=== PATIENT | female | born 1970 | race Caucasian/White ===

== ENCOUNTER 2016-11-09 20:18 | Emergency (ER) | payer MEDICARE, MEDICAID ==
[~2016-11-09] VITALS: Ht 182.9 cm; Wt 86.7 kg
[~2016-11-09 20:18] MED LIST: ALPR.5 PO; CATH8MIS; GABA600T PO; HYDR-3535 PO; TRAZ100T4 PO; ZOLO100T PO
[2016-11-09 20:26] VITALS: BP 141/96; PULSE 75; RESP 16; TEMP 98.6; O2SAT 96
[2016-11-09 21:34] VITALS: BP 153/82; PULSE 69; RESP 18; TEMP 98.6; O2SAT 94
[2016-11-09] MEDS ORDERED: MORPHINE SULFATE 4 MG/ML INJ IV PUSH ONE (21:45)
[2016-11-09] MEDS ORDERED: SODIUM CHLORIDE 0.9% FLUSH 5 ML FLUSH IVF PRN (21:45)
[2016-11-09] MEDS ORDERED: ONDANSETRON HCL 4 MG/2 ML VIAL IVP ONE (21:45)
--- NOTE | 2016-11-09 22:02 | PD ---
HPI . Black tarry stools Chief Complaint: GI Complaint Time Seen by Provider: 21:44 Travel History International Travel<30 days: No Contact w/Intl Traveler<30days: No Traveled to known affect area: No History of Present Illness HPI Patient presents complaining with black tarry stools. She reports that this is been going on for a couple days. She states that it is acutely worse today. She reports approximately 4 episodes of dark tarry stools today. It is associated with diffuse abdominal pain. It is associated with nausea but no vomiting or diarrhea. She reports no change in appetite. She denies fever. Patient reports a spinal cord injury. She has a history of a tethered cord and underwent surgery several years ago. Since then, she has had no control of her bowels or bladder. She states that she self catheters. She states that she defecates by stimulation or by just letting it "run right now." [id number]: Diffuse abdomen SEVERITY: Severe DURATION: 3 days TIMING: Acutely worse today CONTEXT: Saddle anesthesia ASSOCIATED SYMPTOMS: Nausea PFSH Past Medical History Hx Anticoagulant Therapy: No Blood Disorders: No Anxiety: Yes Depression: Yes Cancer: No Cardiovascular Problems: No Chemotherapy: No Cerebrovascular Accident: No Diabetes: No Diminished Hearing: No Endocrine: No Gastrointestinal Disorders: Yes (Self Cath to urinate and digital stimulate for BM) GERD: Yes Genitourinary: No Hepatitis: No Hiatal Hernia: No Immune Disorder: No Musculoskeletal: Yes (chronic pain) Neurologic: No Psychiatric: No Reproductive: No Respiratory: No Immunizations Current: Yes Ulcer: No Tetanus Vaccination: Unknown ?: Not LMP: 312-17 : 4 Para: 3 Miscarriage: 1 Tubal Ligation: Yes Past Surgical History Abdominal Surgery: No AICD: No Appendectomy: No Arteriovenous Shunt: No Cardiac Surgery: No Section: Yes (x 3) Cholecystectomy: No Endocrine Surgery: No Eye Surgery: No Genitourinary Surgery: No Gynecologic Surgery: Yes (ENDOMETRIOSIS) Hysterectomy: No Insulin Pump: No Joint Replacement: No Neurologic Surgery: No Oral Surgery: No Pacemaker: No Thoracic Surgery: No Other Surgery: Yes (tethercord removal ) Social History Alcohol Use: No Tobacco Use: Yes (1 PPD) Allergies-Medications (Allergen,Severity, Reaction): Coded Allergies: Flagyl (Verified Allergy, Severe, Hives, 11/09/16) Clindamycin (Verified Adverse Reaction, Severe, C-diff, 11/09/16) Reported Meds & Prescriptions Reported Meds & Active Scripts Active Bentyl (Dicyclomine HCl) 20 Mg Tab 20 Mg PO QID PRN Gentlecath Urinary Catheter (N/A) 1 Mis Mis 1 Ea .ROUTE DIRECTED Reported Trazodone (Trazodone HCl) 100 Mg Tab 100 Mg PO HS Lortab (Hydrocodone-Acetaminophen) 10-325 Mg Tab 1 Tab PO TID PRN Zoloft (Sertraline HCl) 100 Mg Tab 150 Mg PO DAILY Gabapentin 600 Mg Tab 600 Mg PO QID Xanax (Alprazolam) 0.5 Mg Tab 0.5 Mg PO Q8H PRN Review of Systems Except as stated in HPI: all other systems reviewed are Neg General / Constitutional: No: Fever, Chills Gastrointestinal: Positive: Nausea, Abdominal Pain, Hematochezia, Changes in Bowel Habits, No: Vomiting, Diarrhea, Indigestion, Loss of Appetite Genitourinary: Positive: Other (she self catheterizes. She reports no change.) Physical Exam Narrative GENERAL: Awake and alert and in no acute distress. SKIN: Warm and dry. HEAD: Atraumatic. Normocephalic. EYES: Pupils equal and round. ENT: No nasal bleeding or discharge. Mucous membranes pink and moist. NECK: Trachea midline. Neck is supple. CARDIOVASCULAR: Regular rate and rhythm. Heart sounds are normal. RESPIRATORY: No accessory muscle use. Lungs are clear with full air movement throughout. GASTROINTESTINAL: Abdomen soft. Diffusely tender. Nondistended. Normal bowel sounds. RECTAL: Poor tone. Brown stool. MUSCULOSKELETAL: No obvious deformities. No edema. NEUROLOGICAL: Awake and alert. No obvious cranial nerve deficits. Motor grossly within normal limits. Normal speech. PSYCHIATRIC: Appropriate mood and affect; insight and judgment normal. Data Data Last Documented VS Vital Signs Date Time Temp Pulse Resp B/P Pulse Ox O2 Delivery O2 Flow Rate FiO2 11/09/16 23:22 78 18 97 11/09/16 22:54 148/80 Room Air 11/09/16 21:34 98.6 Orders Complete Blood Count With Diff (11/09/16 21:44) Comprehensive Metabolic Panel (11/09/16 21:44) Lipase (11/09/16 21:44) Urinalysis - C+S If Indicated (11/09/16 21:44) Ct Abd/Pel W Iv Contrast(Rout) (11/09/16 21:44) Iv Access Insert/Monitor (11/09/16 21:44) Ecg Monitoring (11/09/16 21:44) Oximetry (11/09/16 21:44) Morphine Inj (Morphine Inj) (11/09/16 21:45) Ondansetron Inj (Zofran Inj) (11/09/16 21:45) Sodium Chloride 0.9% Flush (Ns Flush) (11/09/16 21:45) Labs Laboratory Tests Test 11/09/16 11/09/16 21:40 21:54 White Blood Count 9.9 TH/MM3 Red Blood Count 5.19 MIL/MM3 Hemoglobin 10.1 GM/DL Hematocrit 33.1 % Mean Corpuscular Volume 63.8 FL Mean Corpuscular Hemoglobin 19.4 PG Mean Corpuscular Hemoglobin 30.5 % Concent Red Cell Distribution Width 19.3 % Platelet Count 287 TH/MM3 Mean Platelet Volume 8.3 FL Neutrophils (%) (Auto) 60.9 % Lymphocytes (%) (Auto) 28.8 % Monocytes (%) (Auto) 8.8 % Eosinophils (%) (Auto) 1.0 % Basophils (%) (Auto) 0.5 % Neutrophils # (Auto) 6.0 TH/MM3 Lymphocytes # (Auto) 2.9 TH/MM3 Monocytes # (Auto) 0.9 TH/MM3 Eosinophils # (Auto) 0.1 TH/MM3 Basophils # (Auto) 0.0 TH/MM3 CBC Comment AUTO DIFF Differential Comment AUTO DIFF CONFIRMED Platelet Estimate NORMAL Platelet Morphology Comment NORMAL Tear Drop Cells 1+ Ovalocytes 2+ Stomatocytes 1+ Sodium Level 143 MEQ/L Potassium Level 3.5 MEQ/L Chloride Level 104 MEQ/L Carbon Dioxide Level 27.8 MEQ/L Anion Gap 11 MEQ/L Blood Urea Nitrogen 15 MG/DL Creatinine 0.67 MG/DL Estimat Glomerular Filtration 95 ML/MIN Rate Random Glucose 83 MG/DL Calcium Level 10.1 MG/DL Total Bilirubin 0.4 MG/DL Aspartate Amino Transf 16 U/L (AST/SGOT) Alanine Aminotransferase 24 U/L (ALT/SGPT) Alkaline Phosphatase 91 U/L Total Protein 8.0 GM/DL Albumin 4.2 GM/DL Lipase 227 U/L Urine Collection Type VOIDED Urine Color STRAW Urine Turbidity CLEAR Urine pH 6.0 Urine Specific [place] 1.010 Urine Protein NEG mg/dL Urine Glucose (UA) NEG mg/dL Urine Ketones NEG mg/dL Urine Occult Blood TRACE Urine Nitrite NEG Urine Bilirubin NEG Urine Leukocyte Esterase NEG Urine WBC 0-2 /hpf Urine Squamous Epithelial >8 /hpf Cells Microscopic Urinalysis Comment CULT NOT INDICATED MDM Medical Decision Making Medical Screen Exam Complete: Yes Emergency Medical Condition: Yes Differential Diagnosis Differential diagnosis of abdominal pain includes but is not limited to gastritis, pancreatitis, hepatitis, gastroenteritis, gallbladder disease, constipation, urinary retention, UTI, peptic ulcer disease, diverticulitis or appendicitis Narrative Course Patient presents with diffuse abdominal pain and dark tarry stools. Stool is Hemoccult negative. CBC & BMP Diagram 11/09/16 21:40 LFTs are normal. Lipase is normal. UA is normal. Last Impressions Abdomen/Pelvis CT 11/09/161 Signed Impressions: Service Date/Time: Wednesday, November 09, 2016 22:29 - CONCLUSION: 1. Nonspecific hepatic low densities likely benign. 2. Left adrenal gland is noted to be prominent, unchanged. 3. Soft tissue prominence/scarring along the lower abdominal/pelvic wall, unchanged. 4. Mild wall thickening of the anterior urinary bladder measuring up to 90 m. James Mac MD [facility] Point of Care Internal Pos. & Neg. Controls: Passed Fecal Specimen Occult Blood: Negative Diagnosis Primary Impression: Dark stools Additional Impression: Abdominal pain Qualified Code: R10.84 - Generalized abdominal pain Patient Instructions: Abdominal Pain (ED), General Instructions, Narcotic given in the ED Med/Other Pt SpecificInfo: Prescription(s) given Scripts Dicyclomine (Bentyl)20 Mg Tab20 Mg PO QID PRN (abdominal pain) #30 TAB Ref 0 Prov:Ara Mcginnis MD 11/09/16 Disposition: 01 DISCHARGE HOME Condition: Stable Ara Mcginnis MD Nov 09, 2016 22:01
[2016-11-09 22:05] LABS: CHLORIDE 104 MEQ/L (98-107); POTASSIUM 3.5 MEQ/L (3.5-5.1); SODIUM (NA) 143 MEQ/L (136-145)
[2016-11-09 22:05] LABS: BLOOD, URINE TRACE (NEG); GLUCOSE,URINE NEG (NEG); KETONE, URINE NEG (NEG); NITRITE,URINE NEG (NEG)
[2016-11-09 22:09] LABS: ANION GAP 11 MEQ/L (5-15); BICARBONATE 27.8 MEQ/L (21.0-32.0); BLOOD UREA NITROGEN 15 MG/DL (7-18)
[2016-11-09 22:12] LABS: ALT (GPT) 24 U/L (10-53); AST (GOT) 16 U/L (15-37); GLOMERULAR FILTRATION RATE 95 ML/MIN (>89)
[2016-11-09 22:12] LABS: METHOD OF COLLECTION VOIDED; URINE COLOR STRAW (YELLW/STRAW)
[2016-11-09 22:13] LABS: BASOPHIL % 0.5 % (0.0-2.0); EOSINOPHIL # 0.1 TH/MM3 (0-0.4); HEMATOCRIT 33.1 % (35.0-46.0); LYMPH % 28.8 % (9.0-44.0); LYMPHOCYTE # 2.9 TH/MM3 (1.0-4.8); MEAN CELL VOLUME 63.8 FL (80.0-100.0); MEAN CORPUSCULAR HEMOGLOBIN 19.4 PG (27.0-34.0); MEAN CORPUSCULAR HGB CONC 30.5 % (32.0-36.0); MONO % 8.8 % (0.0-8.0); NEUT % 60.9 % (16.0-70.0); PLATELET COUNT 287 TH/MM3 (150-450); RED BLOOD COUNT 5.19 MIL/MM3 (4.00-5.30); RED CELL DISTRIBUTION WIDTH 19.3 % (11.6-17.2); TOTAL BILIRUBIN ADULT 0.4 MG/DL (0.2-1.0); WHITE BLOOD COUNT 9.9 TH/MM3 (4.0-11.0)
[2016-11-09 22:13] LABS: COMMENT (UR) CULT NOT INDICATED; CULTURE IF INDICATED CULT NOT INDICATED; SQUAMOUS EPITHELIAL CELL URINE >8 /hpf (0-5); WBC, URINE 0-2 /hpf (0-5)
[2016-11-09 22:15] LABS: ALKALINE PHOSPHATASE 91 U/L (45-117)
[2016-11-09 22:17] VITALS: O2SAT 95
[2016-11-09 22:17] LABS: HEMO FLAGS AUTO DIFF
[2016-11-09 22:54] VITALS: BP 148/80; PULSE 67; RESP 18; O2SAT 98
--- NOTE | 2016-11-09 22:56 | RADHPO ---
EXAM DATE/TIME: 11/09/2016 22:29 [facility] COMPARISON: CT ABDOMEN & PELVIS W/O CONTRAST, February 17, 2015, 15:45. INDICATIONS : Diffuse abdominal pain with nausea. IV CONTRAST: 96 cc Omnipaque 350 (iohexol) IV ORAL CONTRAST: No oral contrast ingested. RADIATION DOSE: 14.18 CTDIvol (mGy) MEDICAL HISTORY : Gastroesophageal reflux disease. Endometreosis. SURGICAL HISTORY : Tubal ligation. ENCOUNTER: Initial ACUITY: 1 day PAIN SCALE: 7/10 LOCATION: Abdomen. TECHNIQUE: Volumetric scanning of the abdomen and pelvis was performed. Using automated exposure control and ad justment of the mA and/or kV according to patient size, radiation dose was kept as low as reasonably achievable to obtain optimal diagnostic quality images. FINDINGS: LOWER LUNGS: The visualized lower lungs are clear. LIVER: Homogeneous density without lesion. There is no dilation of the biliary tree. No calcified gallston es. 2 low-density lesions in the liver. SPLEEN: Normal size without lesion. PANCREAS: Within normal limits. KIDNEYS: Normal in size and shape. There is no mass, stone or hydronephrosis. ADRENAL GLANDS: Left degenerative gland slightly prominent. Right adrenal gland normal.. VASCULAR: There is no aortic aneurysm. BOWEL/MESENTERY: The stomach, small bowel, and colon demonstrate no acute abnormality. There is no free intraperitone al air or fluid. ABDOMINAL WALL: Prominent scarring along the lower anterior abdominal wall. RETROPERITONEUM: There is no lymphadenopathy. BLADDER: Wall thickening anteriorly measuring 9 mm. REPRODUCTIVE: Within normal limits. INGUINAL: There is no lymphadenopathy or hernia. MUSCULOSKELETAL: Within normal limits for patient age. CONCLUSION: 1. Nonspecific hepatic low densities likely benign. 2. Left adrenal gland is noted to be prominent, unchanged. 3. Soft tissue prominence/scarring along the lower abdominal/pelvic wall, unchanged. 4. Mild wall thickening of the anterior urinary bladder measuring up to 90 m. James Mac MD on November 09, 2016 at 22:52 Board Certified Radiologist. This report was verified electronically.
[2016-11-09 23:00] LABS: OVALOCYTES 2+ (NORMAL); STOMATOCYTES 1+ (NORMAL); TEARDROP RBCS 1+ (NORMAL)
[2016-11-09 23:02] LABS: PLATELET ESTIMATE SMEAR NORMAL (NORMAL); PLATELET MORPHOLOGY NORMAL (NORMAL); SCAN/DIFF AUTO DIFF CONFIRMED
[2016-11-09] MEDS ORDERED: BENT20TA PO (23:02)
[2016-11-09] MEDS ORDERED: IOHEXOL 350 MG/ML 10 ML VIAL (for RAD DIAG) IV ONE (23:34)
== END 2016-11-09 23:24 | disposition home or self-care (01) ==
LOC: PHED 20:18
DX: R19.5 Other fecal abnormalities (principal); R10.84 Generalized abdominal pain; R11.0 Nausea; F17.200 Nicotine dependence, unspecified, uncomplicated; Z86.69 Personal history of other diseases of the nervous system and sense organs; Z87.19 Personal history of other diseases of the digestive system; Z87.448 Personal history of other diseases of urinary system; Z86.59 Personal history of other mental and behavioral disorders; Z87.39 Personal history of other diseases of the musculoskeletal system and connective tissue
CPT/HCPCS: 74177; 80053; 81001; 83690; 85025; 96374; 96375; 99285; J2270; J2405; Q9967

== ENCOUNTER 2018-01-08 10:04 | Emergency (ER) | END 2018-01-08 11:49 | disposition home or self-care (01) | DX: N13.9 Obstructive and reflux uropathy, unspecified (principal); K21.9 Gastro-esophageal reflux disease without esophagitis; F17.200 Nicotine dependence, unspecified, uncomplicated; Z87.448 Personal history of other diseases of urinary system; Z87.39 Personal history of other diseases of the musculoskeletal system and connective tissue ==